=== PATIENT | female | born 1955 | race Caucasian/White ===

== ENCOUNTER 2022-11-11 07:07 | Inpatient (IN) | payer OTHER ==
[~2022-11-11] VITALS: Ht 152.4 cm; Wt 97.5 kg
[2022-11-11 07:19] VITALS: BP_SYST 141
[2022-11-11 08:22] LABS: BASOPHILS # (AUTO) 0.1 K/uL (0.0-0.2); BASOPHILS % (AUTO) 1.2 % (0.0-2.0); EOSINOPHILS # (AUTO) 0.2 K/uL (0.0-0.4); EOSINOPHILS % (AUTO) 2.5 % (0.0-4.0); HEMATOCRIT 27.2 % (36-48); HEMOGLOBIN 8.1 g/dL (12.0-16.0); LYMPHOCYTES # (AUTO) 1.9 K/uL (1.0-5.5); LYMPHOCYTES % (AUTO) 24.9 % (20.5-51.5); MEAN CORPUSCULAR HEMOGLOBIN 19 pg (27-31); MEAN CORPUSCULAR HGB CONC 30 % (32-36); MEAN CORPUSCULAR VOLUME 64 fL (79.0-98.0); MONOCYTES # (AUTO) 0.5 K/uL (0.0-1.0); MONOCYTES % (AUTO) 6.4 % (1.7-9.3); PLATELET COUNT (AUTO) 312 K/uL (130-430); RED BLOOD CELL COUNT(AUTO) 4.26 MIL/uL (4.2-6.2); RED CELL DISTRIBUTION WIDTH 19.3 % (9.0-15.0); WHITE BLOOD COUNT (AUTO) 7.7 K/uL (4.8-10.8)
[2022-11-11 08:43] LABS: ANION GAP 9 (5-15); CALCIUM 8.7 mg/dL (8.4-11.0); CHLORIDE 107 mmol/L (98-107); CREATININE 0.66 mg/dL (0.55-1.30); GLUCOSE 182 mg/dL (70-99); UREA NITROGEN, BLOOD 14 mg/dL (8-21)
[2022-11-11] MEDS ORDERED: ASPIRIN 81 MG TAB.CHEW PO ONE ×2 (08:45→09:30)
[2022-11-11] MEDS ORDERED: NITROGLYCERIN 0.4 MG TAB.SUBL SL ONE (08:45)
[2022-11-11] MEDS ORDERED: KETOROLAC TROMETHAMINE 30 MG VIAL IVP ONE (08:45)
[2022-11-11 08:48] LABS: PROTHROMBIN TIME 10.4 SECS (9.5-12.5)
[2022-11-11 08:55] LABS: GFR AFRICAN AMERICAN 115 mL/min (>90)
[2022-11-11 09:01] LABS: ALANINE AMINOTRANSFERASE 33 U/L (12-78); ALBUMIN 3.3 g/dL (3.4-4.8); ASPARTATE AMINOTRANSFERASE 27 U/L (10-37); TOTAL BILIRUBIN 0.3 mg/dL (0.0-1.0)
[2022-11-11 09:08] LABS: BILIRUBIN,URINE NEGATIVE (NEGATIVE); BLOOD, URINE NEGATIVE (NEGATIVE); CLARITY/URINE CLEAR (CLEAR); COLOR,URINE YELLOW (YELLOW); GLUCOSE,URINE NEGATIVE (NEGATIVE); KETONES,URINE TRACE (NEGATIVE); LEUKOCYTE ESTERASE ,URINE TRACE (NEGATIVE); NITRITE, URINE POSITIVE (NEGATIVE); PH,URINE 6.5 (5.0-8.0); PROTEIN URINE NEGATIVE (NEGATIVE); UROBILINOGEN,URINE 0.2 (0.2-1.0)
[2022-11-11] MEDS ORDERED: ONDANSETRON HCL 4 MG/2 ML VIAL IVP ONE ×2 (09:30→14:45)
[2022-11-11] MEDS ORDERED: MORPHINE 4 MG INJ. 4 MG/ML VIAL IVP ONE (09:30)
[2022-11-11 09:35] LABS: BACTERIA,URINE RARE /HPF (None Seen); MUCUS,URINE None Seen /LPF (None Seen); RBC,URINE 0-3 /HPF (0-3); WBC,URINE 0-3 /HPF (0-3)
[2022-11-11] MEDS ORDERED: iohexoL 350 mgI/mL, 100 ML INFUS..BTL IV ONE (09:35)
[2022-11-11] MEDS ORDERED: HEPARIN SODIUM,PORCINE 2000 UNITS/0.4 ML BOLUS IVP PRN (11:15)
[2022-11-11] MEDS ORDERED: HEPARIN 25,000 UNITS/D5W 250ML 250 ML IV ONE (11:15)
[2022-11-11] MEDS ORDERED: HEPARIN SODIUM,PORCINE 5,000 UNITS/ML VIAL IVP ONE (11:15)
[2022-11-11] MEDS ORDERED: HEPARIN SODIUM,PORCINE 3000 UNITS/0.6 ML BOLUS IVP PRN (11:15)
[2022-11-11] MEDS ORDERED: POTASSIUM CHLORIDE 20 MEQ/PKT PACKET PO ONE (12:00)
[2022-11-11] MEDS ORDERED: LOSA25TA3 PO (14:27)
[2022-11-11] MEDS ORDERED: OXYB10TA30 PO (14:27)
[2022-11-11] MEDS ORDERED: FER300L PO (14:27)
[2022-11-11] MEDS ORDERED: INSU100V SQ (14:27)
[2022-11-11] MEDS ORDERED: METF-518 PO (14:27)
[2022-11-11] MEDS ORDERED: INSU100V9 SQ (14:27)
[2022-11-11] MEDS ORDERED: MORPHINE 2 MG/ML INJ. SYRINGE IVP ONE (14:45)
[2022-11-11] MEDS ORDERED: GLUCOSE (DEXTROSE) ORAL GEL -Adults PO PRN (16:00)
[2022-11-11] MEDS ORDERED: DEXTROSE 50% JECT 50 ML DISP.SYRIN IVP PRN (16:00)
[2022-11-11] MEDS ORDERED: D5W 1,000 ML IV PRN (16:00)
[2022-11-11] MEDS ORDERED: INSULIN REGULAR, HUMAN 10 UNITS/0.1 ML, 3 ML VIAL ONE (17:02)
[2022-11-11] MEDS: INSULIN REGULAR, HUMAN 100 UNITS/ML, 3 ML VIAL (humuLIN R) SUBCUT PRN ×2 (17:08→21:55)
[2022-11-11 21:00] VITALS: BP_SYST 135
[2022-11-11] MEDS ORDERED: MORPHINE 2 MG/ML INJ. SYRINGE IVP PRN (21:45)
[2022-11-11] MEDS ORDERED: NALOXONE HCL 0.4 MG/ML AMP (NARCAN) IVP PRN (21:45)
[2022-11-11 23:05] LABS: TOTAL IRON BIND. CAPACITY 336 ug/dL (250-450)
[2022-11-11] MEDS ORDERED: cefTRIAXone 1 GM IVPB PREMIX 50 ML IV ONE (23:32)
[2022-11-11 23:48] LABS: BASOPHILS # (AUTO) 0.1 K/uL (0.0-0.2); BASOPHILS % (AUTO) 0.8 % (0.0-2.0); EOSINOPHILS # (AUTO) 0.2 K/uL (0.0-0.4); EOSINOPHILS % (AUTO) 2.1 % (0.0-4.0); HEMATOCRIT 26.1 % (36-48); HEMOGLOBIN 7.7 g/dL (12.0-16.0); LYMPHOCYTES # (AUTO) 1.7 K/uL (1.0-5.5); LYMPHOCYTES % (AUTO) 16.9 % (20.5-51.5); MEAN CORPUSCULAR HEMOGLOBIN 19 pg (27-31); MEAN CORPUSCULAR HGB CONC 29 % (32-36); MEAN CORPUSCULAR VOLUME 64 fL (79.0-98.0); MONOCYTES # (AUTO) 0.5 K/uL (0.0-1.0); MONOCYTES % (AUTO) 5.3 % (1.7-9.3); NEUTROPHILS # (AUTO) 7.6 K/uL (1.8-7.7); NEUTROPHILS % (AUTO) 74.9 % (40.0-70.0); PLATELET COUNT (AUTO) 374 K/uL (130-430); RED BLOOD CELL COUNT(AUTO) 4.07 MIL/uL (4.2-6.2); RED CELL DISTRIBUTION WIDTH 19.5 % (9.0-15.0); WHITE BLOOD COUNT (AUTO) 10.2 K/uL (4.8-10.8)
[2022-11-12 00:30] VITALS: BP_SYST 145
[2022-11-12] MEDS: cefTRIAXone 1 GM in D5W 50 ML IV SCH ×2 (01:02→20:40)
[2022-11-12] MEDS: INSULIN REGULAR, HUMAN 100 UNITS/ML, 3 ML VIAL (humuLIN R) SUBCUT PRN (06:44)
[2022-11-12 08:24] VITALS: BP_SYST 132
[2022-11-12 08:36] LABS: BASOPHILS # (AUTO) 0.1 K/uL (0.0-0.2); BASOPHILS % (AUTO) 0.6 % (0.0-2.0); EOSINOPHILS # (AUTO) 0.2 K/uL (0.0-0.4); EOSINOPHILS % (AUTO) 1.9 % (0.0-4.0); HEMATOCRIT 26.9 % (36-48); LYMPHOCYTES # (AUTO) 1.8 K/uL (1.0-5.5); LYMPHOCYTES % (AUTO) 19.1 % (20.5-51.5); MEAN CORPUSCULAR HEMOGLOBIN 19 pg (27-31); MEAN CORPUSCULAR HGB CONC 30 % (32-36); MEAN CORPUSCULAR VOLUME 64 fL (79.0-98.0); MONOCYTES # (AUTO) 0.7 K/uL (0.0-1.0); MONOCYTES % (AUTO) 7.4 % (1.7-9.3); NEUTROPHILS # (AUTO) 6.6 K/uL (1.8-7.7); PLATELET COUNT (AUTO) 363 K/uL (130-430); RED BLOOD CELL COUNT(AUTO) 4.19 MIL/uL (4.2-6.2); RED CELL DISTRIBUTION WIDTH 19.8 % (9.0-15.0); WHITE BLOOD COUNT (AUTO) 9.3 K/uL (4.8-10.8)
[2022-11-12 08:43] LABS: CALCIUM 8.2 mg/dL (8.4-11.0); CREATININE 0.62 mg/dL (0.55-1.30)
[2022-11-12] MEDS ORDERED: ATORVASTATIN 20 MG TABLET PO ONE (09:00)
[2022-11-12 09:04] LABS: ALBUMIN 3.3 g/dL (3.4-4.8); TOTAL BILIRUBIN 0.4 mg/dL (0.0-1.0)
[2022-11-12 09:34] LABS: CHOLESTEROL 99 mg/dL (<200); HDL CHOLESTEROL 43 mg/dL (>55); TRIGLYCERIDES 93 mg/dL (30-150)
[2022-11-12] MEDS ORDERED: FERROUS SULFATE 300 MG/5 ML UDC PO ONE (11:15)
[2022-11-12] MEDS: SOD FERRIC GLUC COMPLEX/SUC 125 MG in NS 100 ML IV SCH (11:43)
[2022-11-12 12:00] VITALS: BP_SYST 136
[2022-11-12] MEDS ORDERED: METF-381 PO (12:31)
[2022-11-12] MEDS ORDERED: FERR-69 PO (12:32)
[2022-11-12] MEDS ORDERED: LOSARTAN POTASSIUM 25 MG TABLET PO ONE (12:45)
[2022-11-12 16:00] VITALS: BP_SYST 110
[2022-11-12] MEDS: metFORMIN HCL 500 MG TABLET PO SCH (18:03)
[2022-11-12 20:00] VITALS: BP_SYST 128
[2022-11-12] MEDS: INSULIN Lispro 100 UNITS/ML, 3 ML VIAL (humaLOG) SQ SCH (20:41)
[2022-11-12] MEDS ORDERED: INSULIN GLARGINE 100 UNITS/ML, 10 ML VIAL SUBCUT SCH (21:00)
[2022-11-12] MEDS ORDERED: INSULIN GLARGINE 100 UNITS/ML, 10 ML VIAL SQ SCH (21:00)
[2022-11-12] MEDS ORDERED: FERROUS SULFATE 300 MG/5 ML UDC PO SCH (21:00)
[2022-11-13 00:30] VITALS: BP_SYST 123
[2022-11-13] MEDS: INSULIN REGULAR, HUMAN 100 UNITS/ML, 3 ML VIAL (humuLIN R) SUBCUT PRN (06:16)
[2022-11-13 08:19] VITALS: BP_SYST 129
[2022-11-13] MEDS: metFORMIN HCL 500 MG TABLET PO SCH (08:23)
[2022-11-13] MEDS: INSULIN Lispro 100 UNITS/ML, 3 ML VIAL (humaLOG) SQ SCH (08:26)
[2022-11-13] MEDS ORDERED: ATORVASTATIN 20 MG TABLET PO SCH (09:00)
[2022-11-13] MEDS ORDERED: LOSARTAN POTASSIUM 25 MG TABLET PO SCH (09:00)
[2022-11-13] MEDS: SOD FERRIC GLUC COMPLEX/SUC 125 MG in NS 100 ML IV SCH (09:27)
[2022-11-13] MEDS ORDERED: LIP20 PO (11:33)
[2022-11-13] MEDS ORDERED: CEPH250C PO (11:33)
[2022-11-13] MEDS ORDERED: ASA81 PO (11:34)
[2022-11-13 12:00] VITALS: BP_SYST 123
[2022-11-13 13:20] VITALS: BP_SYST 123
== END 2022-11-13 13:50 | disposition home or self-care (01) | DRG 811 ==
LOC: SED 07:07 → STU 10:41
PROVIDERS: ADMIT Internal Medicine; ATTEND Internal Medicine
DX: D50.9 Iron deficiency anemia, unspecified (principal); I21.A1 Myocardial infarction type 2; J18.9 Pneumonia, unspecified organism; Z68.41 Body mass index [BMI] 40.0-44.9, adult; J81.1 Chronic pulmonary edema; E11.9 Type 2 diabetes mellitus without complications; E78.5 Hyperlipidemia, unspecified; E66.9 Obesity, unspecified; Z20.822 Contact with and (suspected) exposure to COVID-19; Z83.3 Family history of diabetes mellitus; Z79.4 Long term (current) use of insulin; Z79.899 Other long term (current) drug therapy; Z91.041 Radiographic dye allergy status
CPT/HCPCS: 36415; 71045; 71275; 76376; 80053; 80061; 81000; 82272; 82550; 82728; 82962; 83540; 83550; 83880; 84443; 84484; 85025; 85379; 85610-TC; 85730-TC; 86886; 86900; 86901; 87086; 93005; 93306; 93970; 96365; 96375; 99285; G0378; J0696; J1644; J1815; J1885; J2270; J2405; J2916; J7030; J7060; Q9967